=== PATIENT | male | born 1965 | race Caucasian/White ===

== ENCOUNTER 2018-10-13 20:24 | Inpatient (IN) | payer MEDICAID ==
[2018-10-13 20:34] VITALS: BMI 26.3
--- NOTE | 2018-10-13 20:49 | ED PDOC ---
Arrival/HPI - General Chief Complaint: Abnormal Labs Time Seen by Provider: 10/13/18 20:25 Historian: Patient, Family - History of Present Illness Narrative History of Present Illness (Text): 10/13/18 20:42 Yasir Mcwilliams is a 53 year old male, whose past medical history includes CAD with 5 cardiac stents, double bypass, defibrillator placement, hypertension, hyperlipidemia, and diabetes, who presents to the Emergency department accompanied by relative sent for abnormal labwork. Patient states he recently had routine bloodwork performed, was called today by his PMD and advised to come to the ER due to a "low blood count." Relative states patient has a history of iron-deficiency anemia and was transfuse once in the past during his CABG. Patient denies any fever, chills, chest pain, shortness of breath, nausea, vomiting, diarrhea, urinary symptoms, back pain, neck pain, headache, dizziness, or any other complaints. Symptom Onset: Gradual Symptom Course: Unchanged Activities at Onset: Light Context: Home Past Medical History - Provider Review Nursing Documentation Reviewed: Yes Family/Social History - Physician Review Nursing Documentation Reviewed: Yes Family/Social History: Unknown Family HX Allergies/Home Meds Allergies/Adverse Reactions: Allergies No Known Allergies Allergy (Unverified 10/13/18 20:42) Home Medications: Home Meds Medication Instructions Recorded Confirmed Aspirin [Adult Aspirin] 81 mg PO DAILY 10/13/18 10/13/18 Atorvastatin [Lipitor] 80 mg PO HS 10/13/18 10/13/18 Carvedilol [Coreg] 25 mg PO BID 10/13/18 10/13/18 Clopidogrel [Plavix] 75 mg PO DAILY 10/13/18 10/13/18 Ezetimibe 10 mg PO DAILY 10/13/18 10/13/18 Furosemide [Lasix] 80 mg PO DAILY 10/13/18 10/13/18 Hydralazine HCl 100 mg PO BID 10/13/18 10/13/18 Insulin NPH Human Isophane 15 units SC 1900 10/13/18 10/13/18 [Novolin N] Insulin NPH Human Isophane 25 unit SQ 0700 10/13/18 10/13/18 [Novolin N] Review of Systems - Physician Review All systems were reviewed & negative as marked: Yes - Review of Systems Constitutional: Normal. absent: Fevers Eyes: Normal ENT: Normal Respiratory: Normal. absent: SOB, Cough Cardiovascular: Normal. absent: Chest Pain Gastrointestinal: Normal. absent: Abdominal Pain, Diarrhea, Nausea, Vomiting Genitourinary Male: Normal. absent: Dysuria, Frequency, Hematuria, Urinary Output Changes Musculoskeletal: Normal. absent: Back Pain, Neck Pain Skin: Normal. absent: Rash Neurological: Normal. absent: Headache, Dizziness Endocrine: Normal Hemo/Lymphatic: Normal Psychiatric: Normal Physical Exam Vital Signs Reviewed: Yes Temperature: Afebrile Blood Pressure: Normal Pulse: Regular Respiratory Rate: Normal Appearance: Positive for: Well-Appearing, Non-Toxic, Comfortable Pain Distress: None Mental Status: Positive for: Alert and Oriented X 3 - Systems Exam Head: Present: Atraumatic, Normocephalic Pupils: Present: PERRL Extroacular Muscles: Present: EOMI Conjunctiva: Present: Normal Mouth: Present: Moist Mucous Membranes Neck: Present: Normal Range of Motion Respiratory/Chest: Present: Clear to Auscultation, Good Air Exchange. No: Respiratory Distress, Accessory Muscle Use Cardiovascular: Present: Regular Rate and Rhythm, Normal S1, S2. No: Murmurs Abdomen: No: Tenderness, Distention, Peritoneal Signs Back: Present: Normal Inspection Upper Extremity: Present: Normal Inspection. No: Cyanosis, Edema Lower Extremity: Present: Normal Inspection. No: Edema Neurological: Present: GCS=15, CN II-XII Intact, Speech Normal Skin: Present: Warm, Dry, Normal Color. No: Rashes Psychiatric: Present: Alert, Oriented x 3, Normal Insight, Normal Concentration Medical Decision Making ED Course and Treatment: 10/13/18 20:42 Impression: 53 year old male sent to Emergency department for abnormal labwork. Plan: -- EKG -- Labs, blood type and screen -- Reassess and disposition Progress Notes: 10/13/18 21:02 Reviewed EKG, NSR at 65 BPM, prolonged QT, nonspecific ST / T changes 10/13/18 23:[address] Mcnamara, who is aware and agrees with plan. Accepts pt in to hospitalist service. president and cmo notified. - EKG Interpretation Interpreted by ED Physician: Yes Type: 12 lead EKG - Scribe Statement The provider has reviewed the documentation as recorded by the Terry Robert Provider Scribe Attestation: All medical record entries made by the Scribe were at my direction and personally dictated by me. I have reviewed the chart and agree that the record accurately reflects my personal performance of the history, physical exam, [facility] decision making, and the department course for this patient. I have also personally directed, reviewed, and agree with the discharge instructions and disposition. Disposition/Present on Arrival - Present on Arrival Any Indicators Present on Arrival: No History of DVT/PE: No History of Uncontrolled Diabetes: No Urinary Catheter: No History of Decub. Ulcer: No History Surgical Site Infection Following: None - Disposition Have Diagnosis and Disposition been Completed?: Yes Diagnosis: Anemia Disposition: HOSPITALIZED Disposition Time: 23:32 Patient Plan: Admission, Observation Patient Problems: Current Active Problems Problem Status Onset Anemia Acute Condition: STABLE Referrals: PCP,NO [Primary Care Provider] - Follow up with primary Forms: [employer] (French)
[2018-10-13 21:24] LABS: MEAN CELL VOLUME 57.6 fl (80.0-105.0); MEAN CORPUSCULAR HGB CONC 27.8 g/dl (31.0-37.0); PLATELET COUNT 424 10^3/uL (120.0-450.0); RBC 3.99 10^6/uL (3.5-6.1); RED CELL DISTRIBUTION WIDTH 18.2 % (11.5-14.5); WHITE BLOOD COUNT 11.5 10^3/uL (4.5-11.0)
[2018-10-13 21:29] LABS: HEMOGLOBIN 6.4 g/dL (14.0-18.0)
[2018-10-13 21:32] LABS: INR 1.08; PARTIAL THROMBOPLASTIN TIME 41.8 Seconds (26.9-38.3)
[2018-10-13 21:35] LABS: ALB/GLOB RATIO 1.2 (1.1-1.8); CALCIUM 8.7 mg/dL (8.4-10.5)
--- NOTE | 2018-10-13 23:10 | CP.PCM.HP ---
<Eber Benavidez - Last Filed: 10/14/18 00:07> History of Present Illness - History of Present Illness History of Present Illness: Eber Benavidez, PGY1 H&P for Dr. Mcnamara cc: "abnormal labwork showing low blood count" Patient is a 53 year old male with PMHx CAD with 5 cardiac stents (last stent in 2015), CABG (2019), defibrillator placement (2018), HTN, HLD, and DM who came to the ED from his PMD's office for abnormal labwork showing low blood count. In the ED, Vitals: Temp 98.4, HR 66, BP 144/84, RR 18, SaO2 100% (room air). Medical team was consulted for evaluation. Patient said that he has had a previous blood transfusion in the past during his CABG procedure. He endorses chronic fatigue. However, he denies sob,cp, abdominal pain, n/v/d, bowel/bladder changes, lightheadedness, dizziness, fever, chills. He has never had a colonoscopy before. He follows up with his PMD/Estate Conservator regularly and is supposed to follow up with a curb hop next month. He does not endorse blood in his stool or any hematemesis. Patient lives in [place] but visits his daughter in [place]. No sick contacts or recent travel history. A full 12 point ROS was conducted and unremarkable except as stated above. PMD/Estate Conservator: Dr. Adan Simmons Cover Stripper: Dr. Alec Tompkins ([phone]) PMHx: CAD with 5 cardiac stents (last stent in 2016), CABG (2019), defibrillator placement (2018), HTN, HLD, and DM PSHx: CABG (2016), eye surgery Meds: see NOV Allergies: NKDA FamHx: DM in mother, father had lung cancer ( at 65). No bleeding disorders or hx of malignancy in the family. SocialHx: former smoker 1-2 PPD for 4-5 years (quit in 1999), social EtOH use, and denies recreational drug use. Lives in [place], visiting daughter in [place]. Present on Admission - Present on Admission Any Indicators Present on Admission: No Review of Systems - Review of Systems All systems: reviewed and no additional remarkable complaints except (as per HPI.) Past Patient History - Past Social History Smoking Status: Never Smoked - CARDIAC Hx Cardiac Disorders: Yes Hx Internal Defibrillator: Yes - PULMONARY Hx Respiratory Disorders: No - NEUROLOGICAL Hx Neurological Disorder: No - HEENT Hx HEENT Problems: No - RENAL Hx Chronic Kidney Disease: No - ENDOCRINE/METABOLIC Hx Endocrine Disorders: No - HEMATOLOGICAL/ONCOLOGICAL Hx Blood Disorders: No - INTEGUMENTARY Hx Dermatological Problems: No - PSYCHIATRIC Hx Substance Use: No - SURGICAL HISTORY Hx Cardiac Catheterization: Yes (x5) - ANESTHESIA Hx Anesthesia: Yes Hx Anesthesia Reactions: No Meds Allergies/Adverse Reactions: Allergies Allergy/AdvReac Type Severity Reaction Status Date / Time No Known Allergies Allergy Unverified 10/13/18 20:42 Physical Exam - Constitutional Appears: No Acute Distress - Head Exam Head Exam: ATRAUMATIC, NORMAL INSPECTION, NORMOCEPHALIC - Eye Exam Eye Exam: EOMI, PERRL, Scleral icterus (Mild ) Pupil Exam: PERRL Additional comments: Pale conjunctiva - ENT Exam ENT Exam: Mucous Membranes Moist - Neck Exam Neck exam: Positive for: Normal Inspection - Respiratory Exam Respiratory Exam: Clear to Auscultation Bilateral. absent: Accessory Muscle Use, Chest Wall Tenderness, Rales, Rhonchi, Wheezes - Cardiovascular Exam Cardiovascular Exam: RRR, +S1, +S2 - GI/Abdominal Exam GI & Abdominal Exam: Normal Bowel Sounds, Soft. absent: Distended, Firm, Guarding, Organomegaly, Pulsatile Mass, Rebound, Rigid, Tenderness - Rectal Exam Rectal Exam: Hemorrhoids (small external hemorrhoid noted ) Additional comments: No evidence of anal fissures. Prostate smooth, not enlarged. Sample placed onto FOBT. - Extremities Exam Extremities exam: Positive for: full ROM, normal capillary refill, normal inspe ction, pedal pulses present. Negative for: calf tenderness, pedal edema, tenderness - Back Exam Back exam: NORMAL INSPECTION - Neurological Exam Neurological exam: Alert, CN II-XII Intact, Oriented x3 - Psychiatric Exam Psychiatric exam: Normal Affect, Normal Mood - Skin Skin Exam: Dry, Intact, Normal Color, Warm Results - Vital Signs Recent Vital Signs: Last Vital Signs Temp 98.4 F 10/13/18 20:54 Pulse 66 10/13/18 20:54 Resp 18 10/13/18 20:54 BP 144/84 10/13/18 20:54 Pulse Ox 100 10/13/18 20:54 - Labs Result Diagrams: 10/13/18 21:16 10/13/18 21:16 Labs: Laboratory Results - last 24 hr 10/13/18 10/13/18 10/13/18 21:16 21:16 21:16 WBC 11.5 H RBC 3.99 Hgb 6.4 L* Hct 23.0 L MCV 57.6 L MCH 16.0 L MCHC 27.8 L RDW 18.2 H Plt Count 424 PT 12.0 INR 1.08 APTT 41.8 H Sodium 140 Potassium 4.9 Chloride 107 Carbon Dioxide 22 Anion Gap 16 BUN 66 H Creatinine 2.5 H Est GFR ( Amer) 33 Est GFR (Non-Af Amer) 27 Random Glucose 286 H Calcium 8.7 Total Bilirubin 0.5 AST 21 ALT 7 Alkaline Phosphatase 93 Total Protein 7.2 Albumin 4.0 Globulin 3.3 Albumin/Globulin Ratio 1.2 Crossmatch BBK History Checked 10/13/18 22:06 WBC RBC Hgb Hct MCV MCH MCHC RDW Plt Count PT INR APTT Sodium Potassium Chloride Carbon Dioxide Anion Gap BUN Creatinine Est GFR ( Amer) Est GFR (Non-Af Amer) Random Glucose Calcium Total Bilirubin AST ALT Alkaline Phosphatase Total Protein Albumin Globulin Albumin/Globulin Ratio Crossmatch See Detail BBK History Checked No verified bt Assessment & Plan - Assessment and Plan (Free Text) Assessment: Patient is a 53 year old male with PMHx CAD with 5 cardiac stents (last stent in 2015), CABG (2019), defibrillator placement (2017), HTN, HLD, and DM who came to the ED from his PMD's office for abnormal labwork showing low blood count. Patient will be admitted for Microcytic Anemia - r/o GI Bleed and Possible SABRINA on CKD. Plan: Microcytic Anemia - r/o GI Bleed - Hgb 6.4, MCV 57 (baseline Hgb unknown) - cbc q4 - Ferritin, Iron, TIBC, Transferrin, retic count ordered - Transfuse x1 unit in ED, transfuse another unit on the floor - Maintain Hgb > 8 - orthostatic vital signs - FOBT - Elevated BUN may be associated with GI Bleed - GI consulted (Dr. Navarro) - NPO except meds - Protonix 40mg IV q12 - EKG: NSR 65 bpm. Prolonged QT [address] or T wave changes. Possible SABRINA on CKD - May be due to Hx CKD or GI bleed - BUN/Cr is 66/2.5 - f/u repeat cmp - Patient is due for appt with curb hop in one month Hx HTN - c/w home med Coreg - c/w home med hydralazine - c/w home med lasix Hx HLD - c/w home med zetia - c/w home med Lipitor Hx DM - ISS (med) q6 - Accuchecks q6 - Hgb A1c ordered - Glucose 286 on admission Hx CAD with 5 stents and CABG - Last stent placed in 2016 - Hold ASA and Plavix for now because of possible GI Bleed GI ppx: ptx IV q12 DVT ppx: scd Diet: NPO Dispo: monitor patient on the floor. Transfuse as needed. Follow up further recommendations as per GI. Case was discussed and reviewed with Attending Physician, Dr. Mcnamara <Birdie Mcnamara - Last Filed: 10/14/18 05:53> Results - Vital Signs Recent Vital Signs: Last Vital Signs Temp 98.2 F 10/14/18 04:42 Pulse 70 10/14/18 04:42 Resp 18 10/14/18 04:42 BP 137/61 10/14/18 04:42 Pulse Ox 100 10/13/18 20:54 - Labs Result Diagrams: 10/14/18 05:22 10/14/18 05:22 Labs: Laboratory Results - last 24 hr 10/13/18 10/13/18 10/13/18 21:16 21:16 21:16 WBC 11.5 H RBC 3.99 Hgb 6.4 L* Hct 23.0 L MCV 57.6 L MCH 16.0 L MCHC 27.8 L RDW 18.2 H Plt Count 424 Retic Count PT 12.0 INR 1.08 APTT 41.8 H Sodium 140 Potassium 4.9 Chloride 107 Carbon Dioxide 22 Anion Gap 16 BUN 66 H Creatinine 2.5 H Est GFR ( Amer) 33 Est GFR (Non-Af Amer) 27 Random Glucose 286 H Calcium 8.7 Phosphorus Magnesium Iron TIBC % Saturation Total Bilirubin 0.5 AST 21 ALT 7 Alkaline Phosphatase 93 Total Protein 7.2 Albumin 4.0 Globulin 3.3 Albumin/Globulin Ratio 1.2 Blood Type Blood Type Confirm Antibody Screen Crossmatch BBK History Checked 10/13/18 10/13/18 10/13/18 21:16 21:16 22:06 WBC RBC Hgb Hct MCV MCH MCHC RDW Plt Count Retic Count 1.45 PT INR APTT Sodium Potassium Chloride Carbon Dioxide Anion Gap BUN Creatinine Est GFR ( Amer) Est GFR (Non-Af Amer) Random Glucose Calcium Phosphorus Magnesium Iron 15 L TIBC 388 % Saturation 4 L Total Bilirubin AST ALT Alkaline Phosphatase Total Protein Albumin Globulin Albumin/Globulin Ratio Blood Type A POSITIVE Blood Type Confirm Antibody Screen Negative Crossmatch See Detail BBK History Checked No verified bt 10/13/18 10/14/18 10/14/18 23:30 00:58 05:22 WBC 9.7 9.8 RBC 3.79 4.02 Hgb 6.1 L* 7.3 L Hct 21.7 L 24.4 L MCV 57.3 L 60.7 L D MCH 16.1 L 18.2 L MCHC 28.1 L 29.9 L RDW 18.2 H 22.1 H Plt Count 430 362 Retic Count PT INR APTT Sodium Potassium Chloride Carbon Dioxide Anion Gap BUN Creatinine Est GFR ( Amer) Est GFR (Non-Af Amer) Random Glucose Calcium Phosphorus Magnesium Iron TIBC % Saturation Total Bilirubin AST ALT Alkaline Phosphatase Total Protein Albumin Globulin Albumin/Globulin Ratio Blood Type Blood Type Confirm A POSITIVE Antibody Screen Crossmatch BBK History Checked 10/14/18 05:22 WBC RBC Hgb Hct MCV MCH MCHC RDW Plt Count Retic Count PT INR APTT Sodium 143 Potassium 4.6 Chloride 114 H Carbon Dioxide 23 Anion Gap 11 BUN 56 H Creatinine 2.3 H Est GFR ( Amer) 36 Est GFR (Non-Af Amer) 30 Random Glucose 151 H Calcium 8.6 Phosphorus 4.4 Magnesium 2.4 H Iron TIBC % Saturation Total Bilirubin 0.6 AST 16 L D ALT 10 Alkaline Phosphatase 84 Total Protein 6.6 Albumin 3.6 Globulin 3.0 Albumin/Globulin Ratio 1.2 Blood Type Blood Type Confirm Antibody Screen Crossmatch BBK History Checked Attending/Attestation - Attestation I have personally seen and examined this patient.: Yes I have fully participated in the care of the patient.: Yes I have reviewed all pertinent clinical information: Yes Notes (Text): 10/14/18 05:52 Patient was seen when he was in bed # 5 in the ER. Medical record was reviewed. Agree with history, physical examinaiton, assessment and plan.
[2018-10-14 00:09] LABS: IRON 15 ug/dL (45-180)
[2018-10-14 00:19] LABS: % IRON SATURATION 4 % (20-55); TOTAL IRON BINDING CAPACITY 388 ug/dL (261-462)
[2018-10-14 01:57] LABS: MEAN CELL VOLUME 57.3 fl (80.0-105.0); MEAN CORPUSCULAR HEMOGLOBIN 16.1 pg (25.0-35.0); MEAN CORPUSCULAR HGB CONC 28.1 g/dl (31.0-37.0); PLATELET COUNT 430 10^3/uL (120.0-450.0); RED CELL DISTRIBUTION WIDTH 18.2 % (11.5-14.5); WHITE BLOOD COUNT 9.7 10^3/uL (4.5-11.0)
[2018-10-14 02:02] LABS: HEMOGLOBIN 6.1 g/dL (14.0-18.0)
[2018-10-14 03:32] LABS: RBC 3.79 10^6/uL (3.5-6.1)
[2018-10-14 05:35] LABS: HEMOGLOBIN 7.3 g/dL (14.0-18.0); MEAN CORPUSCULAR HEMOGLOBIN 18.2 pg (25.0-35.0); MEAN CORPUSCULAR HGB CONC 29.9 g/dl (31.0-37.0); PLATELET COUNT 362 10^3/uL (120.0-450.0); RBC 4.02 10^6/uL (3.5-6.1); RED CELL DISTRIBUTION WIDTH 22.1 % (11.5-14.5); WHITE BLOOD COUNT 9.8 10^3/uL (4.5-11.0)
[2018-10-14 05:39] LABS: MEAN CELL VOLUME 60.7 fl (80.0-105.0)
[2018-10-14 05:50] LABS: ALB/GLOB RATIO 1.2 (1.1-1.8); ALBUMIN 3.6 g/dL (3.0-4.8); CALCIUM 8.6 mg/dL (8.4-10.5)
[2018-10-14 07:39] LABS: PH,URINE 6.5 (4.7-8.0); URINE BILIRUBIN NEGATIVE (NEGATIVE); URINE BLOOD NEGATIVE (NEGATIVE); URINE GLUCOSE (UA) 100 mg/dL (NEGATIVE); URINE LEUKOCYTE ESTERASE NEGATIVE Leu/uL (NEGATIVE); URINE PROTEIN 100 mg/dL (<30 mg/dL); URINE UROBILINOGEN 0.2 E.U./dL (<1 E.U./dL)
[2018-10-14 07:40] LABS: URINE APPEARANCE CLEAR (CLEAR); URINE COLOR YELLOW (YELLOW)
[2018-10-14 07:46] LABS: CREATININE,RANDOM URINE 37 mg/dL; TOTAL PROTEIN,RANDOM URINE 108 mg/L
[2018-10-14] MEDS ORDERED: Darbepoetin Alfa 100 mcg/ml Inj IVP ONE (08:00)
[2018-10-14 08:08] LABS: URINE RBC 0 - 2 /hpf (0-2); URINE WBC 0 - 2 /hpf (0-6)
[2018-10-14 08:09] LABS: URINE BACTERIA FEW /hpf
[2018-10-14] MEDS ORDERED: Iohexol 240 (50 ml) ONE (08:33)
--- NOTE | 2018-10-14 09:44 | US ---
Date of service: 10/14/2018 PROCEDURE: Ultrasound of the Kidneys HISTORY: SABRINA vs CKD COMPARISON: None available. TECHNIQUE: Grayscale imaging was performed. FINDINGS: RIGHT KIDNEY: Measures: 11.6 cm. Normal in size, contour and echogenicity. No stone, solid mass lesion or hydronephrosis visualized. LEFT KIDNEY: Measures: 11.5 cm. Normal in size, contour and echogenicity. No stone, solid mass lesion or hydronephrosis visualized. OTHER FINDINGS: None. IMPRESSION: Normal examination.
--- NOTE | 2018-10-14 11:07 | CT ---
Date of service: 10/14/2018 PROCEDURE: CT Abdomen and Pelvis without intravenous contrast HISTORY: anemia, rule out intra-abdominal mass lesion COMPARISON: None. TECHNIQUE: Without contrast.. Contrast dose: Radiation dose: Total exam DLP = 526.65 mGy-cm. This CT exam was performed using one or more of the following dose reduction techniques: Automated exposure control, adjustment of the mA and/or kV according to patient size, and/or use of iterative reconstruction technique. FINDINGS: LOWER THORAX: Unremarkable. LIVER: Unremarkable. No gross lesion or ductal dilatation. GALLBLADDER AND BILE DUCTS: Unremarkable. PANCREAS: Unremarkable. No gross lesion or ductal dilatation. SPLEEN: Unremarkable. ADRENALS: Unremarkable. No mass. KIDNEYS AND URETERS: Unremarkable. No hydronephrosis. No solid mass. VASCULATURE: Unremarkable. No aortic aneurysm. Aortic calcification BOWEL: Unremarkable. No obstruction. No gross mural thickening. APPENDIX: Unremarkable. Normal appendix. PERITONEUM: Unremarkable. No free fluid. No free air. LYMPH NODES: Unremarkable. No enlarged lymph nodes. BLADDER: Unremarkable. REPRODUCTIVE: Unremarkable. BONES: No acute fracture. OTHER FINDINGS: None. IMPRESSION: Unremarkable non contrast enhanced CT of the abdomen and pelvis.
[2018-10-14 11:59] LABS: HEMOGLOBIN 8.4 g/dL (14.0-18.0); MEAN CELL VOLUME 62.2 fl (80.0-105.0); MEAN CORPUSCULAR HEMOGLOBIN 18.5 pg (25.0-35.0); MEAN CORPUSCULAR HGB CONC 29.7 g/dl (31.0-37.0); PLATELET COUNT 368 10^3/uL (120.0-450.0); RBC 4.55 10^6/uL (3.5-6.1); RED CELL DISTRIBUTION WIDTH 23.2 % (11.5-14.5)
[2018-10-14] MEDS: Insulin Lispro (humaLOG) MEDIUM Coverage SC SCH ×3 (12:48→17:38)
--- NOTE | 2018-10-14 13:39 | CP.PCM.CON ---
<Chapo Regalado - Last Filed: 10/14/18 14:10> History of Present Illness - History of Present Illness History of Present Illness: GI Consult Note for Dr. Navarro Reason for Consultation: Anemia r/o GIB Patient is a 53 yo M with PMH of CAD s/p stents and CABG, AICD, HTN, HLD, and DM presents to [facility] as instructed by his PMD due to low hemoglobin. Patient admits to chronic fatigue, but denies any other symptoms. In the ED, his Hgb was found to be 6.4, he was transfused 2 units of pRBC with appropriate response. Patient denies ever having endoscopy or colonscopy. Currently, patient denies CP, SOB, n/v/d, abdominal pain, fever, chills, MOLINA, dizziness, melena, hematochezia, hematuria, or dysuria. PMH: CAD with 5 cardiac stents (last stent in 2015), CABG (2018), defibrillator placement (2017), HTN, HLD, and DM Surg: CABG (2015), eye surgery Meds: see MAR Allergies: NKDA FHx: DM in mother, father had lung cancer ( at 65). No bleeding disorders or hx of malignancy in the family. SH: former smoker 1-2 PPD for 4-5 years (quit in 1999), social EtOH use, and denies recreational drug use. Lives in [place], visiting daughter in [place]. Review of Systems - Review of Systems All systems: reviewed and no additional remarkable complaints except (12 point ROS reviewed and is negative other than what is stated in HPI.) Past Patient History - Past Social History Smoking Status: Never Smoked - CARDIAC Hx Cardiac Disorders: Yes Hx Internal Defibrillator: Yes - PULMONARY Hx Respiratory Disorders: No - NEUROLOGICAL Hx Neurological Disorder: No - HEENT Hx HEENT Problems: No - RENAL Hx Chronic Kidney Disease: No - ENDOCRINE/METABOLIC Hx Endocrine Disorders: No - HEMATOLOGICAL/ONCOLOGICAL Hx Blood Disorders: No - INTEGUMENTARY Hx Dermatological Problems: No - PSYCHIATRIC Hx Substance Use: No - SURGICAL HISTORY Hx Cardiac Catheterization: Yes (x5) - ANESTHESIA Hx Anesthesia: Yes Hx Anesthesia Reactions: No Meds Allergies/Adverse Reactions: Allergies Allergy/AdvReac Type Severity Reaction Status Date / Time No Known Allergies Allergy Verified 10/14/18 12:22 - Medications Medications: Current Medications Atorvastatin Calcium (Lipitor) 80 mg PO HS [facility] Carvedilol (Coreg) 25 mg PO BID [facility] Last Admin: 10/14/18 10:00 Dose: 25 mg Ezetimibe (Zetia) 10 mg PO DAILY [facility] Furosemide (Lasix) 80 mg PO DAILY [facility] Last Admin: 10/14/18 10:00 Dose: 80 mg Hydralazine HCl (Apresoline) 100 mg PO BID [facility] Last Admin: 10/14/18 10:24 Dose: 100 mg Insulin Human Lispro (Humalog Med) 0 units SC Q6 [facility]; Protocol Last Admin: 10/14/18 12:48 Dose: Not Given Pantoprazole Sodium (Protonix Inj) 40 mg IVP Q12 [facility] Last Admin: 10/14/18 10:01 Dose: 40 mg Physical Exam - Constitutional Appears: No Acute Distress - Head Exam Head Exam: NORMAL INSPECTION - Eye Exam Eye Exam: Normal appearance - ENT Exam ENT Exam: Mucous Membranes Moist - Neck Exam Neck exam: Positive for: Normal Inspection - Respiratory Exam Respiratory Exam: Clear to Auscultation Bilateral, NORMAL BREATHING PATTERN. absent: Rales, Rhonchi, Wheezes - Cardiovascular Exam Cardiovascular Exam: RRR, +S1, +S2. absent: Diastolic murmur, Gallop, Rubs, Systolic Murmur - GI/Abdominal Exam GI & Abdominal Exam: Soft. absent: Distended, Guarding, Rebound, Tenderness - Rectal Exam Rectal Exam: NORMAL INSPECTION. absent: Black Stool, Bloody Stool, Hemorrhoids, Fecal Impaction - Extremities Exam Extremities exam: Positive for: normal inspection - Neurological Exam Neurological exam: Alert, Oriented x3 - Skin Skin Exam: Normal Color, Warm Results - Vital Signs Recent Vital Signs: Last Vital Signs Temp 98 F 10/14/18 08:34 Pulse 66 10/14/18 10:30 Resp 20 10/14/18 10:30 BP 135/62 10/14/18 10:30 Pulse Ox 97 10/14/18 10:30 - Labs Result Diagrams: 10/14/18 11:50 10/14/18 05:22 Labs: Laboratory Results - last 24 hr 10/13/18 10/13/18 10/13/18 21:16 21:16 21:16 WBC 11.5 H RBC 3.99 Hgb 6.4 L* Hct 23.0 L MCV 57.6 L MCH 16.0 L MCHC 27.8 L RDW 18.2 H Plt Count 424 Retic Count PT 12.0 INR 1.08 APTT 41.8 H Sodium 140 Potassium 4.9 Chloride 107 Carbon Dioxide 22 Anion Gap 16 BUN 66 H Creatinine 2.5 H Est GFR ( Amer) 33 Est GFR (Non-Af Amer) 27 POC Glucose (mg/dL) Random Glucose 286 H Hemoglobin A1c Calcium 8.7 Phosphorus Magnesium Iron TIBC % Saturation Transferrin Ferritin Total Bilirubin 0.5 AST 21 ALT 7 Alkaline Phosphatase 93 Total Protein 7.2 Albumin 4.0 Globulin 3.3 Albumin/Globulin Ratio 1.2 Urine Color Urine Appearance Urine pH Ur Specific [place] Urine Protein Urine Glucose (UA) Urine Ketones Urine Blood Urine Nitrate Urine Bilirubin Urine Urobilinogen Ur Leukocyte Esterase Urine RBC Urine WBC Ur Epithelial Cells Urine Bacteria Ur Random Creatinine U Random Total Protein Ur Random Urea Nitrogn Blood Type Blood Type Confirm Antibody Screen Crossmatch BBK History Checked 10/13/18 10/13/18 10/13/18 21:16 21:16 21:16 WBC RBC Hgb Hct MCV MCH MCHC RDW Plt Count Retic Count 1.45 PT INR APTT Sodium Potassium Chloride Carbon Dioxide Anion Gap BUN Creatinine Est GFR ( Amer) Est GFR (Non-Af Amer) POC Glucose (mg/dL) Random Glucose Hemoglobin A1c Calcium Phosphorus Magnesium Iron 15 L TIBC 388 % Saturation 4 L Transferrin Ferritin 5.4 Total Bilirubin AST ALT Alkaline Phosphatase Total Protein Albumin Globulin Albumin/Globulin Ratio Urine Color Urine Appearance Urine pH Ur Specific [place] Urine Protein Urine Glucose (UA) Urine Ketones Urine Blood Urine Nitrate Urine Bilirubin Urine Urobilinogen Ur Leukocyte Esterase Urine RBC Urine WBC Ur Epithelial Cells Urine Bacteria Ur Random Creatinine U Random Total Protein Ur Random Urea Nitrogn Blood Type Blood Type Confirm Antibody Screen Crossmatch BBK History Checked 10/13/18 10/13/18 10/13/18 21:16 21:16 22:06 WBC RBC Hgb Hct MCV MCH MCHC RDW Plt Count Retic Count PT INR APTT Sodium Potassium Chloride Carbon Dioxide Anion Gap BUN Creatinine Est GFR ( Amer) Est GFR (Non-Af Amer) POC Glucose (mg/dL) Random Glucose Hemoglobin A1c 8.3 H Calcium Phosphorus Magnesium Iron TIBC % Saturation Transferrin 293.30 Ferritin Total Bilirubin AST ALT Alkaline Phosphatase Total Protein Albumin Globulin Albumin/Globulin Ratio Urine Color Urine Appearance Urine pH Ur Specific [place] Urine Protein Urine Glucose (UA) Urine Ketones Urine Blood Urine Nitrate Urine Bilirubin Urine Urobilinogen Ur Leukocyte Esterase Urine RBC Urine WBC Ur Epithelial Cells Urine Bacteria Ur Random Creatinine U Random Total Protein Ur Random Urea Nitrogn Blood Type A POSITIVE Blood Type Confirm Antibody Screen Negative Crossmatch See Detail BBK History Checked No verified bt 10/13/18 10/14/18 10/14/18 23:30 00:58 05:22 WBC 9.7 9.8 RBC 3.79 4.02 Hgb 6.1 L* 7.3 L Hct 21.7 L 24.4 L MCV 57.3 L 60.7 L D MCH 16.1 L 18.2 L MCHC 28.1 L 29.9 L RDW 18.2 H 22.1 H Plt Count 430 362 Retic Count PT INR APTT Sodium Potassium Chloride Carbon Dioxide Anion Gap BUN Creatinine Est GFR ( Amer) Est GFR (Non-Af Amer) POC Glucose (mg/dL) Random Glucose Hemoglobin A1c Calcium Phosphorus Magnesium Iron TIBC % Saturation Transferrin Ferritin Total Bilirubin AST ALT Alkaline Phosphatase Total Protein Albumin Globulin Albumin/Globulin Ratio Urine Color Urine Appearance Urine pH Ur Specific [place] Urine Protein Urine Glucose (UA) Urine Ketones Urine Blood Urine Nitrate Urine Bilirubin Urine Urobilinogen Ur Leukocyte Esterase Urine RBC Urine WBC Ur Epithelial Cells Urine Bacteria Ur Random Creatinine U Random Total Protein Ur Random Urea Nitrogn Blood Type Blood Type Confirm A POSITIVE Antibody Screen Crossmatch BBK History Checked 10/14/18 10/14/18 10/14/18 05:22 06:20 07:00 WBC RBC Hgb Hct MCV MCH MCHC RDW Plt Count Retic Count PT INR APTT Sodium 143 Potassium 4.6 Chloride 114 H Carbon Dioxide 23 Anion Gap 11 BUN 56 H Creatinine 2.3 H Est GFR ( Amer) 36 Est GFR (Non-Af Amer) 30 POC Glucose (mg/dL) 157 H Random Glucose 151 H Hemoglobin A1c Calcium 8.6 Phosphorus 4.4 Magnesium 2.4 H Iron TIBC % Saturation Transferrin Ferritin Total Bilirubin 0.6 AST 16 L D ALT 10 Alkaline Phosphatase 84 Total Protein 6.6 Albumin 3.6 Globulin 3.0 Albumin/Globulin Ratio 1.2 Urine Color Yellow Urine Appearance Clear Urine pH 6.5 Ur Specific [place] 1.020 Urine Protein 100 H Urine Glucose (UA) 100 H Urine Ketones Negative Urine Blood Negative Urine Nitrate Negative Urine Bilirubin Negative Urine Urobilinogen 0.2 Ur Leukocyte Esterase Negative Urine RBC 0 - 2 Urine WBC 0 - 2 Ur Epithelial Cells None Urine Bacteria Few Ur Random Creatinine U Random Total Protein Ur Random Urea Nitrogn Blood Type Blood Type Confirm Antibody Screen Crossmatch BBK History Checked 10/14/18 10/14/18 10/14/18 07:00 07:00 11:50 WBC 9.0 RBC 4.55 Hgb 8.4 L Hct 28.3 L MCV 62.2 L MCH 18.5 L MCHC 29.7 L RDW 23.2 H Plt Count 368 Retic Count PT INR APTT Sodium Potassium Chloride Carbon Dioxide Anion Gap BUN Creatinine Est GFR ( Amer) Est GFR (Non-Af Amer) POC Glucose (mg/dL) Random Glucose Hemoglobin A1c Calcium Phosphorus Magnesium Iron TIBC % Saturation Transferrin Ferritin Total Bilirubin AST ALT Alkaline Phosphatase Total Protein Albumin Globulin Albumin/Globulin Ratio Urine Color Urine Appearance Urine pH Ur Specific [place] Urine Protein Urine Glucose (UA) Urine Ketones Urine Blood Urine Nitrate Urine Bilirubin Urine Urobilinogen Ur Leukocyte Esterase Urine RBC Urine WBC Ur Epithelial Cells Urine Bacteria Ur Random Creatinine 37 U Random Total Protein 108 Ur Random Urea Nitrogn 350 Blood Type Blood Type Confirm Antibody Screen Crossmatch BBK History Checked Assessment & Plan - Assessment and Plan (Free Text) Assessment: 53 yo M with PMH of CAD s/p stents and CABG, AICD, HTN, HLD, and DM presents to [facility] due abnormal outpatient labwork. GI is consulted due to anemia, rule out GI bleed. Abdomen/pelvis CT negative. 1. Anemia, r/o GIB 2. H/o CAD Plan: - H/H stable with appropriate response s/p transfusion - Cont to monitor, recommend transfuse to maintain Hgb > 9 in patient with CAD - Cont PPI - Would benefit from EGD/colonoscopy - For further recommendations, please see attestation Patient discussed in detail with Dr. Navarro. Mert Regalado, DO PGY2 <Pam Navarro V - Last Filed: 10/15/18 00:10> Meds - Medications Medications: Current Medications Atorvastatin Calcium (Lipitor) 80 mg PO HS [facility] Last Admin: 10/14/18 21:12 Dose: 80 mg Carvedilol (Coreg) 25 mg PO BID [facility] Last Admin: 10/14/18 17:37 Dose: 25 mg Ezetimibe (Zetia) 10 mg PO DIN [facility] Last Admin: 10/14/18 17:37 Dose: 10 mg Furosemide (Lasix) 80 mg PO DAILY [facility] Last Admin: 10/14/18 10:00 Dose: 80 mg Hydralazine HCl (Apresoline) 100 mg PO BID [facility] Last Admin: 10/14/18 17:37 Dose: 100 mg Insulin Human Lispro (Humalog Med) 0 units SC Q6 [facility]; Protocol Last Admin: 10/14/18 17:38 Dose: 3 units Pantoprazole Sodium (Protonix Inj) 40 mg IVP Q12 [facility] Last Admin: 10/14/18 21:12 Dose: 40 mg Results - Vital Signs Recent Vital Signs: Last Vital Signs Temp 97.5 F L 10/14/18 22:13 Pulse 61 10/14/18 22:13 Resp 18 10/14/18 22:13 BP 169/71 H 10/14/18 22:13 Pulse Ox 99 10/14/18 22:13 - Labs Result Diagrams: 10/14/18 11:50 10/14/18 05:22 Labs: Laboratory Results - last 24 hr 10/13/18 10/13/18 10/13/18 21:16 21:16 21:16 WBC RBC Hgb Hct MCV MCH MCHC RDW Plt Count Retic Count 1.45 Sodium Potassium Chloride Carbon Dioxide Anion Gap BUN Creatinine Est GFR ( Amer) Est GFR (Non-Af Amer) POC Glucose (mg/dL) Random Glucose Hemoglobin A1c Calcium Phosphorus Magnesium TIBC 388 % Saturation 4 L Transferrin Ferritin 5.4 Total Bilirubin AST ALT Alkaline Phosphatase Total Protein Albumin Globulin Albumin/Globulin Ratio Urine Color Urine Appearance Urine pH Ur Specific [place] Urine Protein Urine Glucose (UA) Urine Ketones Urine Blood Urine Nitrate Urine Bilirubin Urine Urobilinogen Ur Leukocyte Esterase Urine RBC Urine WBC Ur Epithelial Cells Urine Bacteria Ur Random Creatinine U Random Total Protein Ur Random Urea Nitrogn Blood Type Blood Type Confirm Antibody Screen Crossmatch BBK History Checked 10/13/18 10/13/18 10/13/18 21:16 21:16 22:06 WBC RBC Hgb Hct MCV MCH MCHC RDW Plt Count Retic Count Sodium Potassium Chloride Carbon Dioxide Anion Gap BUN Creatinine Est GFR ( Amer) Est GFR (Non-Af Amer) POC Glucose (mg/dL) Random Glucose Hemoglobin A1c 8.3 H Calcium Phosphorus Magnesium TIBC % Saturation Transferrin 293.30 Ferritin Total Bilirubin AST ALT Alkaline Phosphatase Total Protein Albumin Globulin Albumin/Globulin Ratio Urine Color Urine Appearance Urine pH Ur Specific [place] Urine Protein Urine Glucose (UA) Urine Ketones Urine Blood Urine Nitrate Urine Bilirubin Urine Urobilinogen Ur Leukocyte Esterase Urine RBC Urine WBC Ur Epithelial Cells Urine Bacteria Ur Random Creatinine U Random Total Protein Ur Random Urea Nitrogn Blood Type A POSITIVE Blood Type Confirm Antibody Screen Negative Crossmatch See Detail BBK History Checked No verified bt 10/13/18 10/14/18 10/14/18 23:30 00:58 05:22 WBC 9.7 9.8 RBC 3.79 4.02 Hgb 6.1 L* 7.3 L Hct 21.7 L 24.4 L MCV 57.3 L 60.7 L D MCH 16.1 L 18.2 L MCHC 28.1 L 29.9 L RDW 18.2 H 22.1 H Plt Count 430 362 Retic Count Sodium Potassium Chloride Carbon Dioxide Anion Gap BUN Creatinine Est GFR ( Amer) Est GFR (Non-Af Amer) POC Glucose (mg/dL) Random Glucose Hemoglobin A1c Calcium Phosphorus Magnesium TIBC % Saturation Transferrin Ferritin Total Bilirubin AST ALT Alkaline Phosphatase Total Protein Albumin Globulin Albumin/Globulin Ratio Urine Color Urine Appearance Urine pH Ur Specific [place] Urine Protein Urine Glucose (UA) Urine Ketones Urine Blood Urine Nitrate Urine Bilirubin Urine Urobilinogen Ur Leukocyte Esterase Urine RBC Urine WBC Ur Epithelial Cells Urine Bacteria Ur Random Creatinine U Random Total Protein Ur Random Urea Nitrogn Blood Type Blood Type Confirm A POSITIVE Antibody Screen Crossmatch BBK History Checked 10/14/18 10/14/18 10/14/18 05:22 06:20 07:00 WBC RBC Hgb Hct MCV MCH MCHC RDW Plt Count Retic Count Sodium 143 Potassium 4.6 Chloride 114 H Carbon Dioxide 23 Anion Gap 11 BUN 56 H Creatinine 2.3 H Est GFR ( Amer) 36 Est GFR (Non-Af Amer) 30 POC Glucose (mg/dL) 157 H Random Glucose 151 H Hemoglobin A1c Calcium 8.6 Phosphorus 4.4 Magnesium 2.4 H TIBC % Saturation Transferrin Ferritin Total Bilirubin 0.6 AST 16 L D ALT 10 Alkaline Phosphatase 84 Total Protein 6.6 Albumin 3.6 Globulin 3.0 Albumin/Globulin Ratio 1.2 Urine Color Yellow Urine Appearance Clear Urine pH 6.5 Ur Specific [place] 1.020 Urine Protein 100 H Urine Glucose (UA) 100 H Urine Ketones Negative Urine Blood Negative Urine Nitrate Negative Urine Bilirubin Negative Urine Urobilinogen 0.2 Ur Leukocyte Esterase Negative Urine RBC 0 - 2 Urine WBC 0 - 2 Ur Epithelial Cells None Urine Bacteria Few Ur Random Creatinine U Random Total Protein Ur Random Urea Nitrogn Blood Type Blood Type Confirm Antibody Screen Crossmatch BBK History Checked 10/14/18 10/14/18 10/14/18 07:00 07:00 11:50 WBC 9.0 RBC 4.55 Hgb 8.4 L Hct 28.3 L MCV 62.2 L MCH 18.5 L MCHC 29.7 L RDW 23.2 H Plt Count 368 Retic Count Sodium Potassium Chloride Carbon Dioxide Anion Gap BUN Creatinine Est GFR ( Amer) Est GFR (Non-Af Amer) POC Glucose (mg/dL) Random Glucose Hemoglobin A1c Calcium Phosphorus Magnesium TIBC % Saturation Transferrin Ferritin Total Bilirubin AST ALT Alkaline Phosphatase Total Protein Albumin Globulin Albumin/Globulin Ratio Urine Color Urine Appearance Urine pH Ur Specific [place] Urine Protein Urine Glucose (UA) Urine Ketones Urine Blood Urine Nitrate Urine Bilirubin Urine Urobilinogen Ur Leukocyte Esterase Urine RBC Urine WBC Ur Epithelial Cells Urine Bacteria Ur Random Creatinine 37 U Random Total Protein 108 Ur Random Urea Nitrogn 350 Blood Type Blood Type Confirm Antibody Screen Crossmatch BBK History Checked 10/14/18 10/14/18 10/14/18 12:14 16:09 21:54 WBC RBC Hgb Hct MCV MCH MCHC RDW Plt Count Retic Count Sodium Potassium Chloride Carbon Dioxide Anion Gap BUN Creatinine Est GFR ( Amer) Est GFR (Non-Af Amer) POC Glucose (mg/dL) 124 H 245 H 211 H Random Glucose Hemoglobin A1c Calcium Phosphorus Magnesium TIBC % Saturation Transferrin Ferritin Total Bilirubin AST ALT Alkaline Phosphatase Total Protein Albumin Globulin Albumin/Globulin Ratio Urine Color Urine Appearance Urine pH Ur Specific [place] Urine Protein Urine Glucose (UA) Urine Ketones Urine Blood Urine Nitrate Urine Bilirubin Urine Urobilinogen Ur Leukocyte Esterase Urine RBC Urine WBC Ur Epithelial Cells Urine Bacteria Ur Random Creatinine U Random Total Protein Ur Random Urea Nitrogn Blood Type Blood Type Confirm Antibody Screen Crossmatch BBK History Checked Attending/Attestation - Attestation I have personally seen and examined this patient.: Yes I have fully participated in the care of the patient.: Yes I have reviewed all pertinent clinical information: Yes Notes (Text): kurt 10/15/18 00:10
--- NOTE | 2018-10-14 14:37 | CON ---
DATE: 10/14/2018 REQUESTING PHYSICIAN: Sarai Ruiz MD REASON FOR CONSULTATION: Coronary artery disease, recent GI bleeding. HISTORY: This is a 53-year-old man who has had complex past medical history, admitted with severe anemia. He had recent blood work performed and he was found to be markedly anemic and advised admission. He is noted to have increasing exertional dyspnea. He denies any chest pain. He does have a complex cardiac history in that he underwent multivessel PCI in [place] several years ago. He ultimately required coronary bypass surgery performed in [place]. He has also had a defibrillator placed in 2018. He follows with a aircraft maintenance technician and a contact acid plant operator helper in [place]. He denies any hematemesis, hematochezia or melena. He has been maintained on aspirin and Plavix. PAST MEDICAL HISTORY: His past history is known for the problems mentioned above. He does have hypertension, hyperlipidemia and diabetes for nearly 20 years. He has undergone prior eye surgery. CURRENT MEDICATIONS: Include hydralazine 100 mg b.i.d., carvedilol 25 mg b.i.d., Lasix 80 mg daily, Lipitor 80 mg daily, Protonix 40 mg every 12 hours and Zetia. ALLERGIES: NONE. SOCIAL HISTORY: He is a former smoker having quit nearly 20 years ago. He lives in [place] and he was visiting his daughter here in [place]. FAMILY HISTORY: Father from lung cancer at the age of 65. Mother is diabetic. REVIEW OF SYSTEMS: A 10-point review of systems is otherwise unremarkable. PHYSICAL EXAMINATION: GENERAL: He is a middle-aged man who appears comfortable at rest. VITAL SIGNS: His blood pressure is 136/60 with a pulse of 66. Respirations are 16. He is afebrile. HEENT: Normocephalic, atraumatic. NECK: Supple. No JVD noted. CHEST: Diffuse scattered rhonchi heard. HEART: PMI displaced laterally with soft tones noted and a systolic murmur at the left sternal border. ABDOMEN: Soft, distended. Bowel sounds are present. No masses were noted. EXTREMITIES: Trace ankle edema. SKIN: Warm and dry. PSYCHIATRIC: Normal mood and affect. NEUROLOGIC: Alert and oriented x3. No gross motor or sensory deficits notable. DIAGNOSTIC DATA: White count is 11.5. Initial hemoglobin was 6.4 and 23 and is now 8.4 and 28.3 after transfusion. Platelet count is 424,000. PT/PTT 12 and 41.8. Potassium 4.6. BUN and creatinine are 56 and 2.3. Glucose is 151. His electrocardiogram reveals sinus rhythm with mild QT prolongation and nonspecific ST-T abnormalities. Chest x-ray is pending. Renal ultrasound was unremarkable. CT of abdomen and pelvis was reportedly unremarkable. Chest x-ray will be reviewed. IMPRESSION: 1. Severe anemia with evidence of iron-deficiency, suspicious for gastrointestinal blood loss. 2. Left ventricular dysfunction with chronic congestive heart failure, systolic, appears compensated at present time. 3. Coronary artery disease status post prior percutaneous coronary intervention and bypass surgery, stable at present. 4. Status post ICD implant. 5. History of hypertension, hyperlipidemia, and diabetes. RECOMMENDATIONS: Aspirin and Plavix therapy will obviously be withheld at this time. He appears stable and optimized to proceed with endoscopic evaluation as needed. Transfusions for hemoglobin of greater than 8 would be advisable. Attempts will be made to obtain prior records. Holding parameters will be placed on his blood pressure-lowering medications to avoid excessive hypotension. Evaluation of his renal insufficiency is in progress. Thank you for this consultation. We will be happy to follow along through his hospital course as needed. Nikko Reyes MD
[2018-10-14] MEDS ORDERED: Influenza Vaccine 60 mcg/0.5 mL SYR (4YR UP) IM ONE (18:00)
[2018-10-14] MEDS ORDERED: Pneumococcal 23-Valent Vaccine IM ONE (18:00)
--- NOTE | 2018-10-14 19:02 | CARD ---
APPROVED REPORT Date of service: 10/13/2018 EKG Measurement Heart [id number] <Conclusion> Normal sinus rhythm Prolonged QT Abnormal ECG
[2018-10-15] MEDS: Insulin Lispro (humaLOG) MEDIUM Coverage SC SCH ×6 (00:48→23:59)
[2018-10-15 07:37] LABS: BASO # 0.04 K/mm3 (0.0-2.0); BASO % 0.4 % (0.0-3.0); EOS # 0.3 (0.0-0.7); EOS % 3.2 % (1.5-5.0); GRAN # 6.32 (1.4-6.5); GRAN % 60.3 % (50.0-68.0); LYMPH # 3.1 (1.2-3.4); LYMPH % 29.2 % (22.0-35.0); MONO # 0.7 (0.1-0.6); MONO % 6.9 % (1.0-6.0)
[2018-10-15 09:09] LABS: ALB/GLOB RATIO 1.1 (1.1-1.8); ALBUMIN 3.5 g/dL (3.0-4.8); CALCIUM 8.7 mg/dL (8.4-10.5)
[2018-10-15 09:27] LABS: HEMOGLOBIN 8.5 g/dL (14.0-18.0); RBC 4.61 10^6/uL (3.5-6.1); WHITE BLOOD COUNT 10.7 10^3/uL (4.5-11.0)
[2018-10-15 09:28] LABS: BASO # 0.06 K/mm3 (0.0-2.0); BASO % 0.6 % (0.0-3.0); EOS # 0.4 (0.0-0.7); EOS % 3.3 % (1.5-5.0); LYMPH # 3.6 (1.2-3.4); LYMPH % 33.2 % (22.0-35.0); MEAN CELL VOLUME 62.7 fl (80.0-105.0); MEAN CORPUSCULAR HEMOGLOBIN 18.4 pg (25.0-35.0); MEAN CORPUSCULAR HGB CONC 29.4 g/dl (31.0-37.0); MONO # 0.8 (0.1-0.6); MONO % 7.1 % (1.0-6.0); PLATELET COUNT 398 10^3/uL (120.0-450.0); RED CELL DISTRIBUTION WIDTH 23.4 % (11.5-14.5)
--- NOTE | 2018-10-15 09:43 | PN ---
DATE: 10/15/2018 SUBJECTIVE: The patient is seen lying in bed. He is currently comfortable. He denies any chest pain or dyspnea. He denies any evidence of GI blood loss. CURRENT MEDICATIONS: Include hydralazine 100 mg twice a day, carvedilol 25 mg twice a day, Lasix 80 mg daily, Lipitor 80 mg daily, Protonix, and Zetia. OBJECTIVE: GENERAL: He is a middle-aged man who appears comfortable at rest. VITAL SIGNS: Blood pressure is 114/60 with pulse of 66, respirations 16. He is afebrile. HEENT: No JVD. CHEST: Few scattered rhonchi heard. HEART: PMI displaced laterally with soft tones noted. Systolic murmur present at lower sternal border. ABDOMEN: Soft and nontender with normoactive bowel sounds. EXTREMITIES: No edema. DIAGNOSTIC DATA: Morning blood work is pending. IMPRESSION: 1. Recent severe anemia with evidence of iron-deficiency anemia, iron-deficiency suspicious for gastrointestinal blood losses. 2. Left ventricular dysfunction with chronic congestive heart failure, systolic, appears compensated at the present time. 3. Coronary artery disease status post remote percutaneous coronary intervention and bypass surgery, currently stable. 4. Status post implantable cardioverter defibrillator implant. 5. History of hypertension, diabetes, and hyperlipidemia. RECOMMENDATIONS: His aspirin and Plavix remain on hold at the present time. He currently appears compensated and with respect to his cardiac issues, he is stable to proceed with upper and lower endoscopy as needed. Obviously all antiplatelet and antithrombotic therapy should continued to be withheld. An echocardiogram has been performed and will be reviewed. We will continue to follow and make further recommendations as appropriate. Nikko Reyes MD
--- NOTE | 2018-10-15 10:59 | CP.PCM.PN ---
<Chapo Regalado - Last Filed: 10/15/18 10:56> Subjective - Date & Time of Evaluation Date of Evaluation: 10/15/18 Time of Evaluation: 10:56 - Subjective Subjective: GI Consult Note for Dr. Navarro Patient seen and examined at bedside. No acute overnight events. Patient offers no complaints at this time. Objective - Vital Signs/Intake and Output Vital Signs (last 24 hours): Temp Pulse Resp BP Pulse Ox 98.4 F 65 18 165/74 H 99 10/15/18 06:00 10/15/18 10:04 10/15/18 06:00 10/15/18 10:04 10/15/18 06:00 Intake and Output: 10/15/18 10/15/18 06:59 18:59 Intake Total 660 Output Total 400 Balance 260 - Medications Medications: Current Medications Atorvastatin Calcium (Lipitor) 80 mg PO HS [facility] Last Admin: 10/14/18 21:12 Dose: 80 mg Carvedilol (Coreg) 25 mg PO BID [facility] Last Admin: 10/15/18 10:03 Dose: 25 mg Ezetimibe (Zetia) 10 mg PO DIN [facility] Last Admin: 10/14/18 17:37 Dose: 10 mg Furosemide (Lasix) 80 mg PO DAILY [facility] Last Admin: 10/15/18 10:04 Dose: 80 mg Hydralazine HCl (Apresoline) 100 mg PO BID [facility] Last Admin: 10/15/18 10:04 Dose: 100 mg Insulin Human Lispro (Humalog Med) 0 units SC Q6 [facility]; Protocol Last Admin: 10/15/18 08:00 Dose: Not Given Pantoprazole Sodium (Protonix Inj) 40 mg IVP Q12 [facility] Last Admin: 10/15/18 10:03 Dose: 40 mg - Labs Labs: 10/15/18 09:09 10/15/18 08:45 PT 12.0 SECONDS (9.4-12.5) 10/13/18 21:16 INR 1.08 10/13/18 21:16 APTT 41.8 Seconds (26.9-38.3) H 10/13/18 21:16 - Constitutional Appears: No Acute Distress - Head Exam Head Exam: NORMAL INSPECTION - Eye Exam Eye Exam: Normal appearance Pupil Exam: NORMAL ACCOMODATION - ENT Exam ENT Exam: Mucous Membranes Moist, Normal Exam - Respiratory Exam Respiratory Exam: Clear to Ausculation Bilateral. absent: Rales, Rhonchi, Wheezes - Cardiovascular Exam Cardiovascular Exam: REGULAR RHYTHM, RRR - GI/Abdominal Exam GI & Abdominal Exam: Soft. absent: Distended, Guarding, Tenderness, Rebound - Extremities Exam Extremities Exam: Normal Inspection - Back Exam Back Exam: NORMAL INSPECTION - Neurological Exam Neurological Exam: Alert, Awake, Oriented x3 - Skin Skin Exam: Normal Color, Warm Assessment and Plan - Assessment and Plan (Free Text) Assessment: 53 yo M with PMH of CAD s/p stents and CABG, AICD, HTN, HLD, and DM presents to [facility] [place] due abnormal outpatient labwork. GI is consulted due to anemia, rule out GI bleed. Abdomen/pelvis CT negative. 1. Anemia, r/o GIB 2. H/o CAD 3. H/o CKD Plan: - H/H stable with appropriate response s/p transfusion - Cont to monitor, recommend transfuse to maintain Hgb > 9 in patient with CAD - Cont PPI - Recommend endoscopy, can be outpatient. Will consider on Thursday if patient is still in-house. - For further recommendations, please see attestation Patient discussed in detail with Dr. Navarro. Mert Regalado DO PGY2 <Pam Navarro V - Last Filed: 10/16/18 00:41> Objective - Vital Signs/Intake and Output Vital Signs (last 24 hours): Temp Pulse Resp BP Pulse Ox 98.3 F 63 18 98/55 L 99 10/15/18 22:00 10/15/18 22:00 10/15/18 22:00 10/15/18 22:00 10/15/18 22:00 Intake and Output: 10/15/18 10/16/18 18:59 06:59 Intake Total 720 Balance 720 - Medications Medications: Current Medications Atorvastatin Calcium (Lipitor) 80 mg PO HS [facility] Last Admin: 10/15/18 22:39 Dose: 80 mg Carvedilol (Coreg) 25 mg PO BID [facility] Last Admin: 10/15/18 17:36 Dose: 25 mg Ezetimibe (Zetia) 10 mg PO DIN [facility] Last Admin: 10/15/18 16:48 Dose: 10 mg Furosemide (Lasix) 80 mg PO DAILY [facility] Last Admin: 10/15/18 10:04 Dose: 80 mg Hydralazine HCl (Apresoline) 100 mg PO BID [facility] Last Admin: 10/15/18 17:36 Dose: 100 mg Insulin Human Lispro (Humalog Med) 0 units SC Q6 [facility]; Protocol Last Admin: 10/15/18 23:59 Dose: Not Given Pantoprazole Sodium (Protonix Inj) 40 mg IVP Q12 [facility] Last Admin: 10/15/18 22:39 Dose: 40 mg - Labs Labs: 10/15/18 09:09 10/15/18 08:45 PT 12.0 SECONDS (9.4-12.5) 10/13/18 21:16 INR 1.08 10/13/18 21:16 APTT 41.8 Seconds (26.9-38.3) H 10/13/18 21:16 Attending/Attestation - Attestation I have personally seen and examined this patient.: Yes I have fully participated in the care of the patient.: Yes I have reviewed all pertinent clinical information, including history, physical exam and plan: Yes Notes (Text): p 10/16/18 00:41
[2018-10-15 17:16] LABS: FOLATE 16.2 ng/mL
--- NOTE | 2018-10-15 19:03 | CP.PCM.PN ---
<Raymond Scott - Last Filed: 10/15/18 19:21> Subjective - Date & Time of Evaluation Date of Evaluation: 10/15/18 Time of Evaluation: 07:00 - Subjective Subjective: Pt seen and examined this morning at bedside. Per nursing, pt states he feels "a little tired", pt tolerating diet well. Objective - Vital Signs/Intake and Output Vital Signs (last 24 hours): Temp Pulse Resp BP Pulse Ox 98.4 F 62 18 174/74 H 99 10/15/18 06:00 10/15/18 17:36 10/15/18 06:00 10/15/18 17:36 10/15/18 06:00 - Medications Medications: Current Medications Atorvastatin Calcium (Lipitor) 80 mg PO HS [facility] Last Admin: 10/14/18 21:12 Dose: 80 mg Carvedilol (Coreg) 25 mg PO BID [facility] Last Admin: 10/15/18 17:36 Dose: 25 mg Ezetimibe (Zetia) 10 mg PO DIN [facility] Last Admin: 10/15/18 16:48 Dose: 10 mg Furosemide (Lasix) 80 mg PO DAILY [facility] Last Admin: 10/15/18 10:04 Dose: 80 mg Hydralazine HCl (Apresoline) 100 mg PO BID [facility] Last Admin: 10/15/18 17:36 Dose: 100 mg Insulin Human Lispro (Humalog Med) 0 units SC Q6 [facility]; Protocol Last Admin: 10/15/18 18:16 Dose: 1 units Pantoprazole Sodium (Protonix Inj) 40 mg IVP Q12 [facility] Last Admin: 10/15/18 10:03 Dose: 40 mg - Labs Labs: 10/15/18 09:09 10/15/18 08:45 PT 12.0 SECONDS (9.4-12.5) 10/13/18 21:16 INR 1.08 10/13/18 21:16 APTT 41.8 Seconds (26.9-38.3) H 10/13/18 21:16 - Constitutional Appears: No Acute Distress - Head Exam Head Exam: ATRAUMATIC, NORMOCEPHALIC - Eye Exam Eye Exam: EOMI - ENT Exam ENT Exam: Mucous Membranes Moist - Neck Exam Neck Exam: Full ROM - Respiratory Exam Respiratory Exam: Clear to Ausculation Bilateral, NORMAL BREATHING PATTERN. absent: Accessory Muscle Use, Respiratory Distress - Cardiovascular Exam Cardiovascular Exam: RRR, +S1, +S2. absent: Diastolic murmur, Murmur - GI/Abdominal Exam GI & Abdominal Exam: Soft, Normal Bowel Sounds. absent: Tenderness - Extremities Exam Extremities Exam: Full ROM. absent: Calf Tenderness, Pedal Edema - Neurological Exam Neurological Exam: Alert, Awake, Oriented x3 - Psychiatric Exam Psychiatric exam: Normal Affect, Normal Mood - Skin Skin Exam: Dry, Intact, Normal Color Assessment and Plan - Assessment and Plan (Free Text) Assessment: Pt is a 53 yo male with PMH CAD with 5 cardiac stents (last stent in 2015), CABG (2015), defibrillator placement (2017), HTN, HLD, and DM who presented to the ED from his PMD's office for anemia. Plan: Microcytic Anemia - Hgb 8.5, MCV 62, unknown baseline - Ferritin 5.4 - Iron 15 - TIBC 388 - Transferrin 293 - retic count 1.45 - CTAP: unremarkable - GI consulted Dr. 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 - will continue to monitor - renal US unremarkable DM - ISS, Accuchecks - HA1C 8.3 CAD with 5 stents and CABG - Last stent placed in 2015 - Hold ASA and Plavix - ECHO follow up read HTN - Coreg, hydralazine, lasix HLD - zetia, Lipitor Ppx - protonix - SCD - Renal diet Resident called and left message for primary care physician, awaiting call back Pt seen, examined, assessment and plan discussed with Dr Joseph Scott PGY1 <Sarai Ruiz - Last Filed: 10/16/18 18:41> Objective - Vital Signs/Intake and Output Vital Signs (last 24 hours): Temp Pulse Resp BP Pulse Ox 98.7 F 63 17 146/65 97 10/16/18 14:20 10/16/18 17:12 10/16/18 14:20 10/16/18 17:12 10/16/18 14:20 Intake and Output: 10/16/18 10/16/18 06:59 18:59 Intake Total 720 Balance 720 - Medications Medications: Current Medications Atorvastatin Calcium (Lipitor) 80 mg PO [facility] Last Admin: 10/15/18 22:39 Dose: 80 mg Carvedilol (Coreg) 25 mg PO BID [facility] Last Admin: 10/16/18 17:12 Dose: 25 mg Ezetimibe (Zetia) 10 mg PO DIN [facility] Last Admin: 10/16/18 17:11 Dose: 10 mg Furosemide (Lasix) 80 mg PO DAILY [facility] Last Admin: 10/16/18 09:24 Dose: 80 mg Hydralazine HCl (Apresoline) 100 mg PO BID [facility] Last Admin: 10/16/18 17:11 Dose: 100 mg Insulin Human Lispro (Humalog Med) 0 units SC Q6 [facility]; Protocol Last Admin: 10/16/18 12:13 Dose: 5 units Pantoprazole Sodium (Protonix Inj) 40 mg IVP Q12 [facility] Last Admin: 10/16/18 09:23 Dose: 40 mg - Labs Labs: 10/15/18 09:09 10/16/18 07:00 PT 12.0 SECONDS (9.4-12.5) 10/13/18 21:16 INR 1.08 10/13/18 21:16 APTT 41.8 Seconds (26.9-38.3) H 10/13/18 21:16 Attending/Attestation - Attestation I have personally seen and examined this patient.: Yes I have fully participated in the care of the patient.: Yes I have reviewed all pertinent clinical information, including history, physical exam and plan: Yes Notes (Text): 10/16/18 18:36 attending note; Patient seen and examined with resident. Patient is alert and awake. Denies any chest pain, shortness of breath. Denies any nausea, vomiting. Denies any vidhi. Patient is a 53-year-old male with PMH CAD with 5 cardiac stents (last stent in 2016), CABG (2016), defibrillator placement (2018), HTN, HLD, and DM who presented to the ED from his PMD's office for anemia. 1.severe symptomatic anemia; initial hemoglobin was 6.1. s/p Two units PRBC transfusion. Hemoglobin is 8.5. Patient has irodeficiency anemia/ anemia of chronic disease. needs workup as outpatient. 2. Stool for occult blood positive; GI evaluation requested. Patient needs outpatient EGD and colonoscopy. 3. coronary artery disease and stent placement; currently aspirin and Plavix on hold. Cardiology evaluation appreciated. Echocardiogram ordered. 4. hypertension; continue Coreg, hydralazine and Lasix. 5. Chronic kidney disease; patient needs close follow-up as outpatient in preparation for dialysis. 6. Diabetes; continue regular insulin sliding scale. Closely with GI and cardiology. Upon discharge the patient will follow up with PMD in [place]. patient also follows up with cardiology and nephrology in [place]. 10/16/18 18:40
[2018-10-16 07:47] LABS: ALB/GLOB RATIO 1.1 (1.1-1.8); ALBUMIN 3.5 g/dL (3.0-4.8); CALCIUM 8.6 mg/dL (8.4-10.5)
--- NOTE | 2018-10-16 07:51 | CARD ---
APPROVED REPORT Date of service: 10/15/2018 EXAM: Two-dimensional and M-mode echocardiogram with Doppler and color Doppler. INDICATION Dyspnea 2D DIMENSIONS Left Atrium (2D)4.4 (1.6-4.0cm)IVSd1.6 (0.7-1.1cm) LVDd5.1 (3.9-5.9cm)PWd1.2 (0.7-1.1cm) LVDs3.8 (2.5-4.0cm)FS (%) 25.0 % LVEF (%)49.0 (>50%) M-Mode DIMENSIONS Aortic Root3.00 (2.2-3.7cm)Aortic Cusp Exc.1.50 (1.5-2.0cm) Aortic Valve AoV Peak Eudbmdpi213.0cm/Paula Peak GR.15mmHg Mitral Valve E/A ratio0.0 TDI E/Lateral E'0.0E/Medial E'0.0 Tricuspid Valve TR Peak [id number] [id number] Peak Gr.26mmHg [id number] LEFT VENTRICLE The left ventricle is normal size. There is mild to moderate concentric left ventricular hypertrophy. The systolic function is moderately impaired. There is global hypokinesis of the left ventricle. There is severe hypokinesis of the basal anteroseptal wall. RIGHT VENTRICLE The right ventricle is normal size. The right ventricular systolic function is normal. There is an ICD lead in the right ventricle. ATRIA The left atrium is mildly dilated. The right atrium size is normal. The interatrial septum is intact with no evidence for an atrial septal defect. AORTIC VALVE The aortic valve is mildly sclerotic. There is mild aortic regurgitation. There is no aortic valvular stenosis. MITRAL VALVE Mitral annular calcification is mild. Mitral regurgitation is mild to moderate. TRICUSPID VALVE The tricuspid valve is normal in structure. There is mild tricuspid regurgitation. PULMONIC VALVE The pulmonary valve is normal in structure. GREAT VESSELS The aortic root is normal in size. The IVC is normal in size and collapses >50% with inspiration. PERICARDIAL EFFUSION There is no pleural effusion. There is no pericardial effusion. <Conclusion> Dilated LA. Normal LV size. Mild to moderate concentric LVH. Moderate LV systolic function wtih moderate global hypokinesis and severe anteroseptal hyupokinesis. Mild to moderate MR. Mild AI. Mild TR.
[2018-10-16] MEDS: Insulin Lispro (humaLOG) MEDIUM Coverage SC SCH ×3 (08:27→18:55)
[2018-10-16 09:27] VITALS: PULSE 63
[2018-10-16 14:21] VITALS: BP 146/65; RESP 17; TEMP 98.7; O2SAT 97
--- NOTE | 2018-10-16 14:35 | CP.PCM.PN ---
Subjective - Date & Time of Evaluation Date of Evaluation: 10/16/18 Time of Evaluation: 14:32 - Subjective Subjective: Patient is doing well. No complaints. Admits 14lbs weight loss in 2 months.a Objective - Vital Signs/Intake and Output Vital Signs (last 24 hours): Temp Pulse Resp BP Pulse Ox 98.7 F 63 17 146/65 97 10/16/18 14:20 10/16/18 14:20 10/16/18 14:20 10/16/18 14:20 10/16/18 14:20 Intake and Output: 10/16/18 10/16/18 06:59 18:59 Intake Total 720 Balance 720 - Medications Medications: Current Medications Atorvastatin Calcium (Lipitor) 80 mg PO HS [facility] Last Admin: 10/15/18 22:39 Dose: 80 mg Carvedilol (Coreg) 25 mg PO BID [facility] Last Admin: 10/16/18 09:24 Dose: 25 mg Ezetimibe (Zetia) 10 mg PO DIN [facility] Last Admin: 10/15/18 16:48 Dose: 10 mg Furosemide (Lasix) 80 mg PO DAILY [facility] Last Admin: 10/16/18 09:24 Dose: 80 mg Hydralazine HCl (Apresoline) 100 mg PO BID [facility] Last Admin: 10/16/18 09:23 Dose: 100 mg Insulin Human Lispro (Humalog Med) 0 units SC Q6 [facility]; Protocol Last Admin: 10/16/18 12:13 Dose: 5 units Pantoprazole Sodium (Protonix Inj) 40 mg IVP Q12 [facility] Last Admin: 10/16/18 09:23 Dose: 40 mg - Labs Labs: 10/15/18 09:09 10/16/18 07:00 PT 12.0 SECONDS (9.4-12.5) 10/13/18 21:16 INR 1.08 10/13/18 21:16 APTT 41.8 Seconds (26.9-38.3) H 10/13/18 21:16 - Constitutional Appears: Non-toxic, No Acute Distress - Head Exam Head Exam: ATRAUMATIC, NORMAL INSPECTION - Respiratory Exam Respiratory Exam: Clear to Ausculation Bilateral, NORMAL BREATHING PATTERN - Cardiovascular Exam Cardiovascular Exam: REGULAR RHYTHM, +S1, +S2 - GI/Abdominal Exam GI & Abdominal Exam: Soft, Normal Bowel Sounds. absent: Tenderness - Extremities Exam Extremities Exam: Normal Inspection. absent: Pedal Edema - Neurological Exam Neurological Exam: Alert, Awake, Oriented x3 - Psychiatric Exam Psychiatric exam: Normal Affect, Normal Mood Assessment and Plan - Assessment and Plan (Free Text) Assessment: 53 yo M with PMH of CAD s/p stents and CABG, AICD, HTN, HLD, and DM presents to [facility] [place] due abnormal outpatient labwork. GI is consulted due to anemia, rule out GI bleed. Abdomen/pelvis CT negative. 1. Iron deficiency Anemia, r/o GIB 2. H/o CAD 3. H/o CKD Plan: - H/H stable with appropriate response s/p transfusion - Cont to monitor, recommend transfuse to maintain Hgb > 9 in patient with CAD - Cont PPI - Recommend endoscopy. Will consider on Thursday if patient is still in-house. - Important that patient has structured follow up and plan in place for EGD/colonoscopy given history of weight loss and iron deficiency anemia - For further recommendations, please see attestation Patient discussed in detail with Dr. Navarro.
--- NOTE | 2018-10-16 16:10 | CP.PCM.DIS ---
Provider - Provider Date of Admission: 10/13/18 23:32 Attending physician: Etienne Meyers MD Primary care physician: NO PRIMARY CARE PROVIDER Consults: 10/14/18 00:02 Physician Consult Routine Comment: Consulting Provider: Pam Navarro V Consulting Physician: Pam Navarro V Reason for Consult: Low Hemoglobin, possible GI bleed 10/14/18 07:05 Consult [Physician Consult] Routine Comment: Consulting Provider: Nikko Reyes Consulting Physician: Nikko Reyes Reason for Consult: h/o CAD, stent, aicd 10/14/18 18:00 Inpatient [employer] Me[employer] Referral Routine Comment: Physician Instructions: Reason For Exam: EVALUATION Transition In Care/Readmission Reduction Routine Comment: Physician Instructions: Reason For Exam: EVALUATION Time Spent in preparation of Discharge (in minutes): 35 Diagnosis - Discharge Diagnosis (1) Anemia Status: Acute Priority: Medium Hospital Course - Lab Results Lab Results: Most Recent Lab Values WBC 10.7 10^3/uL (4.5-11.0) 10/15/18 09:09 RBC 4.61 10^6/uL (3.5-6.1) 10/15/18 09:09 Hgb 8.5 g/dL (14.0-18.0) L 10/15/18 09:09 Hct 28.9 % (42.0-52.0) L 10/15/18 09:09 MCV 62.7 fl (80.0-105.0) L 10/15/18 09:09 MCH 18.4 pg (25.0-35.0) L 10/15/18 09:09 MCHC 29.4 g/dl (31.0-37.0) L 10/15/18 09:09 RDW 23.4 % (11.5-14.5) H 10/15/18 09:09 Plt Count 398 10^3/uL (120.0-450.0) 10/15/18 09:09 Gran % 60.3 % (50.0-68.0) 10/14/18 05:22 Neut % (Auto) 55.8 % (50.0-68.0) 10/15/18 09:09 Lymph % (Auto) 33.2 % (22.0-35.0) 10/15/18 09:09 Smith % (Auto) 7.1 % (1.0-6.0) H 10/15/18 09:09 Eos % (Auto) 3.3 % (1.5-5.0) 10/15/18 09:09 Baso % (Auto) 0.6 % (0.0-3.0) 10/15/18 09:09 Gran # 6.32 (1.4-6.5) 10/14/18 05:22 Lymph # (Auto) 3.6 (1.2-3.4) H 10/15/18 09:09 Smith # (Auto) 0.8 (0.1-0.6) H 10/15/18 09:09 Eos # (Auto) 0.4 (0.0-0.7) 10/15/18 09:09 Baso # (Auto) 0.06 K/mm3 (0.0-2.0) 10/15/18 09:09 Absolute Neuts (auto) 5.96 (1.4-6.5) 10/15/18 09:09 Retic Count 1.45 % (0.5-1.5) 10/13/18 21:16 PT 12.0 SECONDS (9.4-12.5) 10/13/18 21:16 INR 1.08 10/13/18 21:16 APTT 41.8 Seconds (26.9-38.3) H 10/13/18 21:16 Sodium 140 mmol/L (132-148) 10/16/18 07:00 Potassium 4.5 mmol/L (3.6-5.0) 10/16/18 07:00 Chloride 108 mmol/L (98-107) H 10/16/18 07:00 Carbon Dioxide 23 mmol/L (21-33) 10/16/18 07:00 Anion Gap 14 (10-20) 10/16/18 07:00 BUN 53 mg/dL (7-21) H 10/16/18 07:00 Creatinine 2.6 mg/dl (0.8-1.5) H 10/16/18 07:00 Est GFR ( Amer) 31 10/16/18 07:00 Est GFR (Non-Af Amer) 26 10/16/18 07:00 POC Glucose (mg/dL) 265 mg/dL (65-110) H 10/16/18 11:30 Random Glucose 177 mg/dL (70-110) H 10/16/18 07:00 Hemoglobin A1c 8.3 % (4.2-6.5) H 10/13/18 21:16 Calcium 8.6 mg/dL (8.4-10.5) 10/16/18 07:00 Phosphorus 4.5 mg/dL (2.5-4.5) 10/16/18 07:00 Magnesium 2.2 mg/dL (1.7-2.2) 10/16/18 07:00 Iron 15 ug/dL (45-180) L 10/13/18 21:16 TIBC 388 ug/dL (261-462) 10/13/18 21:16 % Saturation 4 % (20-55) L 10/13/18 21:16 Transferrin 293.30 mg/dL (206-381) 10/13/18 21:16 Ferritin 5.4 ng/mL 10/13/18 21:16 Total Bilirubin 0.9 mg/dL (0.2-1.3) 10/16/18 07:00 AST 16 U/L (17-59) L 10/16/18 07:00 ALT 14 U/L (7-56) 10/16/18 07:00 Alkaline Phosphatase 85 U/L (38-126) 10/16/18 07:00 Total Protein 6.6 g/dL (5.8-8.3) 10/16/18 07:00 Albumin 3.5 g/dL (3.0-4.8) 10/16/18 07:00 Globulin 3.1 gm/dL 10/16/18 07:00 Albumin/Globulin Ratio 1.1 (1.1-1.8) 10/16/18 07:00 Vitamin B12 800 pg/mL (239-931) 10/15/18 08:45 Folate 16.2 ng/mL 10/15/18 08:45 Urine Color Yellow (YELLOW) 10/14/18 07:00 Urine Appearance Clear (CLEAR) 10/14/18 07:00 Urine pH 6.5 (4.7-8.0) 10/14/18 07:00 Ur Specific [place] 1.020 (1.005-1.035) 10/14/18 07:00 Urine Protein 100 mg/dL (<30 mg/dL) H 10/14/18 07:00 Urine Glucose (UA) 100 mg/dL (NEGATIVE) H 10/14/18 07:00 Urine Ketones Negative mg/dL (NEGATIVE) 10/14/18 07:00 Urine Blood Negative (NEGATIVE) 10/14/18 07:00 Urine Nitrate Negative (NEGATIVE) 10/14/18 07:00 Urine Bilirubin Negative (NEGATIVE) 10/14/18 07:00 Urine Urobilinogen 0.2 E.U./dL (<1 E.U./dL) 10/14/18 07:00 Ur Leukocyte Esterase Negative Dat/uL (NEGATIVE) 10/14/18 07:00 Urine RBC 0 - 2 /hpf (0-2) 10/14/18 07:00 Urine WBC 0 - 2 /hpf (0-6) 10/14/18 07:00 Ur Epithelial Cells None /hpf (0-5) 10/14/18 07:00 Urine Bacteria Few /hpf (NONE) 10/14/18 07:00 Ur Random Creatinine 41 mg/dL (20-320) 10/14/18 07:00 U Random Total Protein 108 mg/L 10/14/18 07:00 Ur Random Urea Nitrogn 350 mg/dL 10/14/18 07:00 Urine Total Volume 48.6 mg/dL 10/14/18 07:00 Microalb/Creat Ratio 1186 (<30) H 10/14/18 07:00 Blood Type A POSITIVE 10/13/18 22:06 Blood Type Confirm A POSITIVE 10/13/18 23:30 Antibody Screen Negative 10/13/18 22:06 Crossmatch See Detail 10/13/18 22:06 BBK History Checked No verified bt 10/13/18 22:06 - Hospital Course Hospital Course: 53 year old male with PMHx CAD with 5 cardiac stents (last stent in 2016), CABG (2019), defibrillator placement (2018), HTN, HLD, and DM came in with symptomatic anemia and abnormal labs from PMD's office. Patient stated that he has had a blood transfusion in the past. While here, patient had cardiac evaluation for risk stratification of GI procedure, for which he was classified as having no cardiac contraindication for. ASA and plavix was held, but GI decided to take patient for procedure on 10/18. Patient did not have to remain in house for the procedure. Patient was medically optimized and deemed stable for discharge. Referrals for GI were given to patient. He will follow up with his PMD, who is also is card iologist, Dr. Adan Simmons. Discharge Exam - Head Exam Head Exam: ATRAUMATIC, NORMAL INSPECTION Discharge Plan - Discharge Medications Prescriptions: Docusate Sodium [Colace] 100 mg PO DAILY PRN #20 capsule PRN Reason: Constipation Ferrous Sulfate [Feosol] 324 mg PO TID #90 ect - Follow Up Plan Condition: STABLE Disposition: HOME/ ROUTINE Instructions: Anemia Caused by Low Iron, Colonoscopy (DC), Anemia of Chronic Disease (DC) Additional Instructions: Please do not take your aspirin and plavix until you are evaluated by cardiology next week Please set yourself up for an endoscopy with the stomach doctor, Dr. Navarro, as an outpatient If your symptoms return, please report to the ED immediately Referrals: PCP,NO [Primary Care Provider] - Pam Navarro MD [Medical Doctor] -
--- NOTE | 2018-10-16 19:11 | PN ---
DATE: 10/16/2018 SUBJECTIVE: The patient is seen lying in bed on 5R. He is currently comfortable. GI evaluation remains pending. CURRENT MEDICATIONS: Includes hydralazine 100 mg b.i.d., carvedilol 25 mg b.i.d., Lasix 80 mg daily, Lipitor 80 mg daily, Protonix 40 mg every 12 hours, Zetia 10 mg daily. OBJECTIVE: GENERAL: He is a middle-aged man, who appears comfortable at rest. VITAL SIGNS: His blood pressure is 138/66 with pulse of 60 and regular, respirations 14. He is afebrile. HEENT: No JVD. CHEST: Few scattered rhonchi. HEART: PMI displaced laterally with systolic murmur at the apex. ABDOMEN: Soft, nontender with bowel sounds. EXTREMITIES: No edema. DIAGNOSTIC DATA: Potassium 4.5, BUN and creatinine 53 and 2.6. White count 4.5. His echocardiogram was reviewed showing evidence of [id number] concentric LVH with moderate LV systolic function including moderate LV global hypokinesis and severe anteroseptal hypokinesis, [id number] mitral regurgitation is present and mild aortic and tricuspid insufficiency are noted. IMPRESSION: 1. Recent severe anemia with iron deficiency suspicious for gastrointestinal blood loss, workup pending. 2. Left ventricular systolic dysfunction with chronic congestive heart failure, appears compensated at the present time. 3. Coronary artery disease status post remote percutaneous coronary intervention and bypass surgery, currently clinically stable. 4. Status post implantable cardioverter defibrillator implant. 5. History of hypertension, diabetes, and hyperlipidemia. RECOMMENDATION: Aspirin and Plavix therapy remain on hold. He is stable from a cardiac standpoint to proceed with GI workup at this time. There is a possibility that he would be discharged and outpatient workup be initiated. There is no cardiac contraindication to this. We will be happy to follow any further recommendations as appropriate. Nikko Reyes MD
== END 2018-10-16 22:26 | disposition home or self-care (01) | DRG 574 ==
LOC: ED 20:24 → ERH 23:32 → 5RSO 10-14 15:55
PROVIDERS: ADMIT Internal Medicine; ATTEND Internal Medicine
PROC: 30233N1 Transfusion of Nonautologous Red Blood Cells into Peripheral Vein, Percutaneous Approach (ICD-10-PCS; principal; 2018-10-14)
DX: D50.9 Iron deficiency anemia, unspecified (principal); I50.22 Chronic systolic (congestive) heart failure; I13.0 Hypertensive heart and chronic kidney disease with heart failure and stage 1 through stage 4 chronic kidney disease, or unspecified chronic kidney disease; N18.9 Chronic kidney disease, unspecified; E11.22 Type 2 diabetes mellitus with diabetic chronic kidney disease; R53.82 Chronic fatigue, unspecified; I25.10 Atherosclerotic heart disease of native coronary artery without angina pectoris; D63.8 Anemia in other chronic diseases classified elsewhere; E78.5 Hyperlipidemia, unspecified; Z79.4 Long term (current) use of insulin; Z79.02 Long term (current) use of antithrombotics/antiplatelets; Z79.82 Long term (current) use of aspirin; Z95.810 Presence of automatic (implantable) cardiac defibrillator; Z95.5 Presence of coronary angioplasty implant and graft; Z95.1 Presence of aortocoronary bypass graft; Z87.891 Personal history of nicotine dependence